=== PATIENT | female | born 1940 | race Caucasian/White ===

== ENCOUNTER 2016-09-28 20:21 | Emergency (ER) | payer MEDICARE, OTHER ==
[~2016-09-28] VITALS: Ht 160 cm; Wt 45.0 kg
[~2016-09-28 20:21] MED LIST: ASPI81TA9 PO; AZIT250T PO; CEFD300C PO; CEFP200T PO; CEPH-264 PO; FOLI1TAB16 PO; HYDR4TAB13 PO; HYOS0.12 PO; MIRT30TA3 PO; SENN8.6T6 PO; SIME125T PO; VANC125C10 PO; ZOLP10TA PO; ambien PEG; dilaudid PEG; folic acid PEG; mylanta PEG; norvasc; probiotic PEG; remeron PEG; vancomycin
[2016-09-28 20:40] VITALS: BP 145/58
--- NOTE | 2016-09-28 21:01 | ED.ADGEN ---
Past History Past Medical History: Cancer, Hypertension, Lung Disease, Pneumonia, Stroke, Other Past Surgical History: Other Smoking: Non-smoker Alcohol Use: None Drug Use: None Adult General Chief Complaint Chief Complaint " My cath. is plugged..." HPI HPI Patient is a 76 year old female who presents with above complaints. Patient has frequent problems with her urinary catheter plugging. She has been seen previously for similar presentation. Patient has multiple medical problems. And has a chronic urinary catheter placement. Patient follows with Dr. Valenzuela. Patient presents for replacement. Urinary catheter. No other pressing complaints. Review of Systems Review of Systems Constitutional: Denies fever or chills [] Eyes: Denies change in visual acuity, redness, or eye pain [] HENT: Denies nasal congestion or sore throat [] Respiratory: Denies cough or shortness of breath [] Cardiovascular: No additional information not addressed in HPI [] GI: Denies abdominal pain, nausea, vomiting, bloody stools or diarrhea . Complaints of bladder distention. : Denies dysuria or hematuria [] complains urinary retention and plugged urinary catheter Musculoskeletal: Chronic back pain or joint pain [] Integument: Denies rash or skin lesions [] Neurologic: Denies headache, focal weakness or sensory changes [] Endocrine: Denies polyuria or polydipsia [] Family History Family History Noncontributory Current Medications Current Medications Current Medications Medications (Trade) Dose Ordered Sig/Jarred Start Time Stop Time Status Last Admin Dose Admin Oxybutynin Chloride (Ditropan) 5 mg STK-MED ONCE 09/28/16 21:41 09/29/16 11:25 DC Phenazopyridine HCl (Pyridium) 200 mg STK-MED ONCE 09/28/16 21:38 09/29/16 11:25 DC Allergies Allergies Allergies Coded Allergies Type Severity Reaction Last Updated Verified Procaine HCl Allergy Severe 08/28/13 Yes ciprofloxacin Allergy Intermediate 08/28/13 Yes ciprofloxacin HCl Allergy Intermediate 08/28/13 Yes I S O L A T I O N *CONTACT* Allergy Unknown 06/08/14 Yes Uncoded Allergies Type Severity Reaction Last Updated Verified oral medications Adverse Reaction Severe Nausea and Vomiting 08/27/13 Physical Exam Physical Exam Constitutional: Chronically ill in appearance, non-toxic appearance. [] HENT: Normocephalic, atraumatic, bilateral external ears normal, oropharynx moist, no oral exudates, nose normal. Muscle wasting Eyes: PERRLA, EOMI, conjunctiva normal, no discharge. [] Neck: Normal range of motion, no tenderness, supple, no stridor. [] Cardiovascular:Heart rate regular rhythm, no murmur, PMI to the left Lungs & Thorax: Bilateral breath sounds equal at apexes on auscultation, a few scattered wheezes. Abdomen: Bowel sounds normal, soft, no tenderness, no masses, no pulsatile masses. Old surgery scars. Mild distention of suprapubic area. Skin: Warm, dry, no erythema, no rash. Poor turgor Back: No tenderness, no CVA tenderness. [] Extremities: No tenderness, no cyanosis, no clubbing, ROM intact, no edema. Muscle wasting. Arthritic changes. Neurologic: Alert and oriented X 3, normal motor function, normal sensory function, no focal deficits noted. [] Psychologic: Affect normal, judgement normal, mood normal. [] Current Patient Data Vital Signs Vital Signs Date Time Temp Pulse Resp B/P Pulse Ox O2 Delivery O2 Flow Rate FiO2 09/28/16 20:40 97.9 20 94 Room Air EKG EKG [] Radiology/Procedures Radiology/Procedures [] Course & Med Decision Making Course & Med Decision Making Pertinent Labs and Imaging studies reviewed. (See chart for details). Justice replaced. Patient follow-up primary care. Patient return if any concerns. [] Final Impression Final Impression 1. Plug Justice catheter [] Problems: Dragon Disclaimer Dragon Disclaimer This electronic medical record was generated, in whole or in part, using a voice recognition dictation system. MAXI BALLESTEROS MD Sep 28, 2016 21:01
[2016-09-28] MEDS ORDERED: PHENAZOPYRIDINE 200 MG TABLET. ONE (21:38)
[2016-09-28] MEDS ORDERED: OXYBUTYNIN CHLORIDE 5 MG TABLET ONE (21:41)
[2016-09-28] MEDS ORDERED: OXYBUTYNIN CHLORIDE 5 MG TABLET PO ONE (22:00)
[2016-09-28] MEDS ORDERED: PHENAZOPYRIDINE 200 MG TABLET. PO ONE (22:00)
== END 2016-09-28 23:45 | disposition home or self-care (01) ==
LOC: ER 20:38
DX: T83.098A Other mechanical complication of other urinary catheter, initial encounter (principal); I10 Essential (primary) hypertension; Z86.73 Personal history of transient ischemic attack (TIA), and cerebral infarction without residual deficits; Z88.4 Allergy status to anesthetic agent; Z88.1 Allergy status to other antibiotic agents; Z91.041 Radiographic dye allergy status
CPT/HCPCS: 51702; 99284-25

== ENCOUNTER 2016-10-12 22:35 | Emergency (ER) | payer MEDICARE, OTHER ==
[~2016-10-12] VITALS: Ht 160 cm; Wt 45.0 kg
--- NOTE | 2016-10-12 23:05 | PHYS DOC ---
General Chief Complaint: URINE CATHETER PROBLEM Stated Complaint: BLOCKED CATH Time Seen by MD: 22:55 Source: patient Problems: History of Present Illness Initial Comments Patient here for Justice catheter problem. Patient's had a catheter in place for quite some time following bladder cancer. She is currently not receiving chemotherapy or radiation. She said she normally flushes every day but skipped last night. They wish try to flush, the catheter wouldn't flush, and she presents for possible obstruction. She really has no other acute symptoms today. There is no fever chills URI symptoms or cough. There's no chest pain or shortness of breath. She has no nausea vomiting or abdominal pain. She has some occasional bladder cramps. She notes no change in color of the urine and urine is not foul-smelling. She has no diarrhea or constipation. There is no focal extremity or neurologic complaints. Patient Jennifer's recently been treated for antibiotics for pneumonia but just finished these. She has no chest pain, shortness of breath, fever, or cough today this acutely changed or different. Other than present for care tonight has been nothing done for this at home and no fractures noted increase or decrease her symptoms. Patient's past medical history is remarkable for bladder cancer. She also does have a feeding tube in place. She says she takes most of her nutrition through the tube. She is a nonsmoker and nonuser of ethanol. She says she gets up and about the house by herself without a cane or a walker. Allergies: Coded Allergies: Procaine HCl (Verified Allergy, Severe, 08/28/13) convulsions ciprofloxacin (Verified Allergy, Intermediate, 08/28/13) ciprofloxacin HCl (Verified Allergy, Intermediate, 08/28/13) I S O L A T I O N *CONTACT* (Verified Allergy, Unknown, 06/08/14) MRSA screen + Uncoded Allergies: oral medications (Adverse Reaction, Severe, Nausea and Vomiting, 08/27/13) Past Medical History Medical History: cancer Social History Smoker: non-smoker Alcohol: none Review of Systems All Other Systems: Reviewed and Negative Physical Exam General Appearance: WD/WN, no apparent distress Neck: full range of motion, supple, normal inspection Respiratory: lungs clear, normal breath sounds, no respiratory distress Cardiovascular: regular rate, rhythm, no edema Gastrointestinal: non tender, soft, no organomegaly, other Back: no CVA tenderness, no vertebral tenderness Extremities: normal inspection, no pedal edema Neurologic/Psychiatric: alert, normal mood/affect, oriented x 3 Skin: normal color Comments Generally this is a thin white female in no acute distress. Vitals are as noted. Pertinent signs on physical exam shows the chest to be clear. Cardiac vascular exam shows regular rate and rhythm without murmur. The abdomen is soft and nontender without masses or megaly. There is no perineal findings noted. Patient does have a feeding tube in the midabdominal area. The site does not appear to look infected, but does look like it somewhat "soupy". Patient says her dressing has not been change in several days' time. The back shows no CVA tenderness. shows a Justice catheter in place. X-ray show no rash cyanosis or edema. Patient is awake alert oriented and cooperative. Remainder of physical exam is clinically unremarkable. Orders, Labs, Meds Old charts note multiple prior ER visits to the ER, the respiratory for Justice catheter and urinary issues. She's been seen here the third time this year for catheter problem, most recently the first part of September. As noted, she's been seen on multiple other occasions for Justice catheter pain and for urinary retention. She was last admitted in the hospital 2013 for pneumonia. 2345 Patient resting comfortably in the ED. Nursing staff was able to flush the catheter but only got about 50 mL of urine out in a very slow fashion. We determined we will go ahead and replace the catheter, which was done successfully, the patient has good flow subsequently through the catheter. We will go ahead and change the patient's feeding tube dressing as well. She has no other complaints and feels like she is comfortable going home at this time. We will ask her to continue her home catheter care as well as to follow-up with primary care or return to the ER sooner as needed if worsen anyway. She looks well, in no acute discomfort distress, okay for discharge home at this time. INES WATKINS MD Oct 12, 2016 23:05
[2016-10-12 23:49] VITALS: BP 133/69
== END 2016-10-12 23:52 | disposition home or self-care (01) ==
LOC: ER 22:35
DX: T83.098A Other mechanical complication of other urinary catheter, initial encounter (principal); Z88.4 Allergy status to anesthetic agent; Z88.1 Allergy status to other antibiotic agents; Z91.041 Radiographic dye allergy status
CPT/HCPCS: 51702; 99284-25

== ENCOUNTER 2017-02-16 02:45 | Inpatient (IN) | payer MEDICARE, OTHER ==
[2017-02-16] VITALS (21 sets, daily range): BP systolic 86–138; BP diastolic 54–95
[~2017-02-16] VITALS: Ht 160 cm; Wt 45.6 kg
[~2017-02-16 02:45] MED LIST changes: +ASPI-612 PO; -ASPI81TA9 PO; -HYDR4TAB13 PO; +HYDR4TAB45 PO; +SENN-87 PO; -SENN8.6T6 PO
[2017-02-16] MEDS ORDERED: 0.9 % SODIUM CHLORIDE 10 ML DISP.SYRIN. IV PRN (03:00)
--- NOTE | 2017-02-16 03:08 | PHYS DOC ---
Past History Past Medical History: Cancer, Hypertension, Lung Disease, Pneumonia, Stroke, Other Past Surgical History: Other Smoking: Non-smoker Alcohol Use: None Drug Use: None Adult General Chief Complaint Chief Complaint: shortness of breath productive cough HPI HPI Patient is a patient from [facility] Patient is a 76-year-old female with history of lung cancer,, generalized abdominal pain, pneumonia, cancer of the mouth, respiratory failure with hypoxia , ileus, malnutrition, anxiety disorder, who presents with progressive shortness of breath productive cough for last 2 weeks. Patient is presently living at [facility] where she is progressively experienced increased shortness of breath with productive cough and with sounding lungs for the last 2 weeks. It's gotten progressively worse she describes increased shortness of breath or pleuritic left-sided chest pain with cough and movement of the chest wall there is unrelenting and continue this. She is normally being treated for depression, chronic pain on daily methadone, hypothyroidism, hypertension who is not receiving any aggressive chemoradiation therapy for her lung cancer and longer. Patient has a G-tube in place for nutritional supplementation since her disease processes cause decreased oral intake and muscle wasting with protein deficiency. The chest wall pain she is expressing continuous worse with direct pressure over the left chest wall and movement. Patient denies any fevers at this point and has had some chills over the coarse week. She denies any abdominal pain, nausea or diarrhea here he denies any UTI symptoms or other changes in her symptoms. Patient asked to go to [facility] but unfortunately this particular admit was not able to follow her request. She is willing to be admitted to our facility and treated by our hospitalist. 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 It is also the reason she cannot swallow and she has a G-tube in place. her cancer has been in remission for some time and she is no longer receiving chemoradiation her for her lung cancer. She is a local Review of Systems Review of Systems Constitutional: Subjective fevers and chills Eyes: No change in visual acuity eye drainage or redness. HENT: Denies nasal congestion or sore throat [] Respiratory: She does have a productive cough and shortness of breath. Cardiovascular: No additional information not addressed in HPI [] GI: Denies abdominal pain, nausea, vomiting, bloody stools or diarrhea [] : Denies dysuria or hematuria [] Musculoskeletal: sHe complains of chronic back and belly pain. [] Integument: Denies rash or skin lesions [] Neurologic: Denies headache, focal weakness or sensory changes [] Endocrine: Denies polyuria or polydipsia [] Allergies Allergies Allergies Coded Allergies Type Severity Reaction Last Updated Verified Procaine HCl Allergy Severe 08/28/13 Yes ciprofloxacin Allergy Intermediate 08/28/13 Yes ciprofloxacin HCl Allergy Intermediate 08/28/13 Yes I S O L A T I O N *CONTACT* Allergy Unknown 06/08/14 Yes Uncoded Allergies Type Severity Reaction Last Updated Verified oral medications Adverse Reaction Severe Nausea and Vomiting 08/27/13 Physical Exam Physical Exam Vital signs recorded on the chart demonstrate no tachypnea no hypoxia no hypertension no fever. Constitutional: Patient is thin cachectic and poorly nourished. She is having increased respiratory rate, with mild retractions, patient is pale appearance with no diaphoresis HENT: Normocephalic, atraumatic, bilateral external ears normal, very dry mucous membranes no oral exudates, nose normal. Patient demonstrates temporal wasting. [] Eyes: PERRLA, EOMI, conjunctiva very pale without discharge Neck: Normal range of motion, no tenderness, supple, no stridor. [] Cardiovascular:Heart rate regular rhythm, no murmur [] Lungs & Thorax: She denies coarse rhonchi throughout the she's of the lungs bilaterally left greater than right. Abdomen: Bowel sounds normal, soft, no tenderness, no masses, no pulsatile masses. G-tube placement demonstrates clean dry and intact. Skin: Warm, dry with pale given Extremities: No tenderness, no cyanosis, no clubbing, ROM intact, no edema. [] Neurologic: Alert and oriented X 3, normal motor function, normal sensory function, no focal deficits noted. [] Psychologic: Affect normal, judgement normal, mood normal. [] Current Patient Data Vital Signs Impression demonstrates hypoxia, tachypnea, hypertension upon arrival. Lab Results Laboratory Tests Test 02/16/17 03:05 White Blood Count 7.7 x10^3/uL (4.0-11.0) Red Blood Count 2.50 x10^6/uL (3.50-5.40) L Hemoglobin 5.4 g/dL (12.0-15.5) *L Hematocrit 17.8 % (36.0-47.0) *L Mean Corpuscular Volume 71 fL (79-100) L Mean Corpuscular Hemoglobin 22 pg (25-35) L Mean Corpuscular Hemoglobin Concent 31 g/dL (31-37) Red Cell Distribution Width 20.6 % (11.5-14.5) H Platelet Count 453 x10^3/uL (140-400) H Neutrophils (%) (Auto) 85 % (31-73) H Lymphocytes (%) (Auto) 4 % (24-48) L Monocytes (%) (Auto) 11 % (0-9) H Eosinophils (%) (Auto) 0 % (0-3) Basophils (%) (Auto) 0 % (0-3) Neutrophils # (Auto) 6.5 x10^3uL (1.8-7.7) Lymphocytes # (Auto) 0.3 x10^3/uL (1.0-4.8) L Monocytes # (Auto) 0.8 x10^3/uL (0.0-1.1) Eosinophils # (Auto) 0.0 x10^3/uL (0.0-0.7) Basophils # (Auto) 0.0 x10^3/uL (0.0-0.2) Sodium Level 133 mmol/L (136-145) L Potassium Level 4.6 mmol/L (3.5-5.1) Chloride Level 95 mmol/L (98-107) L Carbon Dioxide Level 35 mmol/L (21-32) H Anion Gap 3 (6-14) L Blood Urea Nitrogen 22 mg/dL (7-20) H Creatinine 0.7 mg/dL (0.6-1.0) Estimated GFR (Cockcroft-Gault) 81.1 BUN/Creatinine Ratio 31 (6-20) H Glucose Level 112 mg/dL (70-99) H Lactic Acid Level 0.7 mmol/L (0.4-2.0) Calcium Level 9.0 mg/dL (8.5-10.1) Magnesium Level 2.1 mg/dL (1.8-2.4) Total Bilirubin 0.3 mg/dL (0.2-1.0) Aspartate Amino Transferase (AST) 21 U/L (15-37) Alanine Aminotransferase (ALT) 23 U/L (14-59) Alkaline Phosphatase 139 U/L (46-116) H Creatine Kinase 23 U/L (26-192) L Creatine Kinase MB (Mass) < 0.5 ng/mL (0.0-3.6) Creatine Kinase MB Relative Index 2.2 % (0-4) Troponin I Quantitative < 0.017 ng/mL (0-0.055) KV-Pmp-A-Type Natriuretic Peptide 2675 pg/mL (0-449) H Total Protein 7.9 g/dL (6.4-8.2) Albumin 2.1 g/dL (3.4-5.0) L Albumin/Globulin Ratio 0.4 (1.0-1.7) L Lipase 37 U/L (73-393) L Laboratory Tests Test 02/16/17 03:05 Sodium Level 133 mmol/L (136-145) L Potassium Level 4.6 mmol/L (3.5-5.1) Chloride Level 95 mmol/L (98-107) L Carbon Dioxide Level 35 mmol/L (21-32) H Anion Gap 3 (6-14) L Blood Urea Nitrogen 22 mg/dL (7-20) H Creatinine 0.7 mg/dL (0.6-1.0) Estimated GFR (Cockcroft-Gault) 81.1 BUN/Creatinine Ratio 31 (6-20) H Glucose Level 112 mg/dL (70-99) H Lactic Acid Level 0.7 mmol/L (0.4-2.0) Calcium Level 9.0 mg/dL (8.5-10.1) Magnesium Level 2.1 mg/dL (1.8-2.4) Total Bilirubin 0.3 mg/dL (0.2-1.0) Aspartate Amino Transferase (AST) 21 U/L (15-37) Alanine Aminotransferase (ALT) 23 U/L (14-59) Alkaline Phosphatase 139 U/L (46-116) H Creatine Kinase 23 U/L (26-192) L Creatine Kinase MB (Mass) < 0.5 ng/mL (0.0-3.6) Creatine Kinase MB Relative Index 2.2 % (0-4) Troponin I Quantitative < 0.017 ng/mL (0-0.055) YF-Gfl-F-Type Natriuretic Peptide 2675 pg/mL (0-449) H Total Protein 7.9 g/dL (6.4-8.2) Albumin 2.1 g/dL (3.4-5.0) L Albumin/Globulin Ratio 0.4 (1.0-1.7) L Lipase 37 U/L (73-393) L EKG EKG [] CT completed at 4 3 AM 02/16/2017 demonstrates sinus rhythm with a heart rate of 85 W[place] interval of 142 which is normal QRS width of 80 which is normal QTC which is 450 which is normal. Patient is a little bit of left axis deviation and left anterior hemiblock. She has good R-wave progression with no ST segment or T-wave inversions or ST segment elevations consistent with acute ischemia EKG is read by Dr. Piña Radiology/Procedures Radiology/Procedures [] AP chest film done at 3:12 AM 02/16/2017 demonstrates focal consolidation within the right lower lung right middle lung with fluid in the fissure. There may also be a mass lesion noted within mediastinum on the right left side with increased perihilar markings. She does not demonstrate any cardiomegaly subdiaphragmatic air or pneumothorax. Chest x-ray read by Dr. Piña. Course & Med Decision Making Course & Med Decision Making Pertinent Labs and Imaging studies reviewed. (See chart for details) patient arrived with a increased respiratory drive, anxiety, hypoxia on a nonrebreather very cold and chilled and worried about a pneumonia. I reviewed residential notes, vital signs, EMS report, my physical and my history collected shortness of breath lDifferential diagnosis: Acute myocardial ischemia, heart failure, cardiac tamponade, bronchospasm, pulmonary embolism, pneumothorax, pulmonary infection i.e. bronchitis or pneumonia, upper airway obstruction, anaphylaxis, aspiration, psychogenic, pulmonary contusion, toxidrome, pneumomediastinum, noncardiogenic pulmonary edema or ARDS, COPD, tuberculosis, cystic fibrosis, asthma, high altitude pulmonary edema, valvular dysfunction, cardiac dysrhythmia , stroke, neuromuscular diseases like myasthenia gravis gravis, ALS, Guillain- Galan syndrome, metabolic acidosis to include diabetic ketoacidosis, sepsis, and obstructive disorders like massive obesity considered upon arrival. sHe was immediately given a medication for anxiety, pain medications, blood cultures, lactic acid, troponin, CBC, CMP, EKG, chest x-ray and patient was placed on monitors with IV Hep-Lock. 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 Patient's pain improved significantly with IV medications and she became more rested. Patient tells me that their symptoms given during CC are improved. The time is now 3:30 AM CConsultant note: Dr. Kaur Program Development Manager called at of the service service at 3:31 AM Consult called back at 3:31 AM Discussed the case I presented and they agreed with admission. Time of acceptance 33 1 AM. He was provided IV antibiotics, fluids, antiemetics, pain medications, and antianxiety medications. She will be placed in the ICU for close monitoring while antibiotics are administered. Impression: Pneumonia, lung cancer, chest pain unclear etiology likely pleurisy I spent approximately 45-50 minutes working and engaged directly in the patient care providing critical care evaluation this includes but not limited to time spent engaged in work directly related to the individual patients care. I spent time at the bedside, reviewing test results, discussing the case with staff, documenting the medical record and time spent with EMS discussing specific treatment issues when the patient presented and during his evaluation. Impression CBC is still not returned patient demonstrates multiple abnormality is on her CMP is well to include hyponatremia, elevated BUNs, Patient's CBCs finally returned at 4:46 AM demonstrates severe anemia likely from chronic disease with a H&H of 5 and 17. This is explained patient's discomfort shortness of breath and fatigue she will be typed and crossed for 2 units and transfused in the unit. I Shared This Information with the Patient for Admission. Dragon Disclaimer Dragon Disclaimer This chart was dictated in whole or in part using Voice Recognition software in a busy, high-work load, and often noisy Emergency Department environment. It may contain unintended and wholly unrecognized errors or omissions. Departure Departure: Impression: Primary Impression: Pneumonia Additional Impressions: Chest pain Dyspnea Anemia Disposition: ADMITTED INPATIENT Admitting Physician: Remedios Kaur Referrals: KAILEY GONCALVES (PCP) Problem Qualifiers OCTAVIO PIÑA MD Feb 16, 2017 03:08
[2017-02-16] MEDS ORDERED: AZITHROMYCIN 500 MG VIAL. IV ONE (03:21)
[2017-02-16] MEDS ORDERED: IV NORMAL SALINE 250ML 250 ML ONE ×2 (03:21→14:13)
[2017-02-16] MEDS ORDERED: IV NORMAL SALINE 50ML 50 ML ONE (03:22)
[2017-02-16] MEDS ORDERED: cefTRIAXone SODIUM 1 GM VIAL IV ONE (03:22)
[2017-02-16] MEDS ORDERED: HYDROmorphone PF 1 MG/ML DISP.SYRIN IV ONE (03:30)
[2017-02-16] MEDS ORDERED: IV NORMAL SALINE 1,000ML 1,000 ML IV SCH (03:30)
[2017-02-16] MEDS ORDERED: ASPIRIN 81 MG TAB.CHEW PO ONE (03:30)
[2017-02-16] MEDS ORDERED: AZITHROMYCIN 500 MG in IV NORMAL SALINE 250ML 250 ML IV ONE (03:30)
[2017-02-16] MEDS: IV NORMAL SALINE 1,000ML 1,000 ML IV SCH ×3 (03:46→23:46)
[2017-02-16] MEDS ORDERED: HYDROmorphone PF 1 MG/ML DISP.SYRIN IV PRN (04:00)
[2017-02-16] MEDS ORDERED: ONDANSETRON PF 4 MG/2 ML VIAL. IV PRN (04:00)
[2017-02-16] MEDS ORDERED: ACETAMINOPHEN 325 MG TABLET PO PRN (04:00)
[2017-02-16 04:18] LABS: ALBUMIN 2.1 g/dL (3.4-5.0); ALBUMIN/GLOBULIN RATIO 0.4 (1.0-1.7); ALK PHOS 139 U/L (46-116); ALT (SGPT) 23 U/L (14-59); ANION GAP 3 (6-14); AST (SGOT) 21 U/L (15-37); BLOOD UREA NITROGEN 22 mg/dL (7-20); BUN/CREATININE RATIO 31 (6-20); CARBON DIOXIDE 35 mmol/L (21-32); CHLORIDE 95 mmol/L (98-107); CREATINE KINASE 23 U/L (26-192); CREATININE 0.7 mg/dL (0.6-1.0); GFR 81.1; GLUCOSE 112 mg/dL (70-99); LIPASE 37 U/L (73-393); MAGNESIUM 2.1 mg/dL (1.8-2.4); POTASSIUM 4.6 mmol/L (3.5-5.1); SODIUM 133 mmol/L (136-145); TOTAL BILIRUBIN 0.3 mg/dL (0.2-1.0); TOTAL PROTEIN 7.9 g/dL (6.4-8.2)
[2017-02-16 04:20] LABS: BASO % 0 % (0-3); EOS % 0 % (0-3); LYMPH # 0.3 x10^3/uL (1.0-4.8); LYMPH % 4 % (24-48); MEAN CORPUSCULAR HEMOGLOBIN 22 pg (25-35); MEAN CORPUSCULAR HGB CONC 31 g/dL (31-37); MEAN CORPUSCULAR VOLUME 71 fL (79-100); MONO # 0.8 x10^3/uL (0.0-1.1); MONO % 11 % (0-9); NEUT # 6.5 x10^3uL (1.8-7.7); NEUT % 85 % (31-73); PLATELET COUNT 453 x10^3/uL (140-400); RED CELL DISTRIBUTION WIDTH 20.6 % (11.5-14.5); WHITE BLOOD COUNT 7.7 x10^3/uL (4.0-11.0)
[2017-02-16 04:38] LABS: HEMOGLOBIN 5.4 g/dL (12.0-15.5)
[2017-02-16 04:39] LABS: HEMATOCRIT 17.8 % (36.0-47.0)
[2017-02-16 05:29] LABS: BACTERIA,URINE MANY /HPF (0-FEW); BILIRUBIN,URINE NEG (NEG); CLARITY,URINE HAZY; COLOR,URINE YELLOW; GLUCOSE,URINE NEG (NEG); NITRITE,URINE NEG (NEG); SQUAMOUS EPITHELIAL CELL,UR FEW /LPF; UROBILINOGEN,URINE 0.2 mg/dL (0.2 mg/dL); WBC,URINE TNTC /HPF (0-4)
--- NOTE | 2017-02-16 06:44 | EKG ---
[address] [address] Test Date: 2017-02-16 Test Time: 04:03:04 Pat Name: MARCY HALL Department: Room: [facility]02 1 Gender: F Learning Coach: [place] : [id number] Requested By: OCTAVIO PIÑA Order Number: [id number] Reading MD: Raleigh Glasgow Measurements Intervals [place] Rate: 85 P: -8 NE: 142 QRS: -36 QRSD: 80 T: 65 QT: 378 QTc: 450 Interpretive Statements SINUS RHYTHM ABNORMAL LEFT AXIS DEVIATION LEFT ANTERIOR FASCICULAR BLOCK Electronically Signed On 02-22-2017 14:14:25 CDT by Raleigh Glasgow
--- NOTE | 2017-02-16 08:00 | NUR ---
The patient, MARCY HALL, 76 y/o, F admitted by STEPHY RYDER DO, was given written information regarding hospital policies, unit procedures and contact persons. Valuables were checked and left in room. Pt able to verbalize POC, states she is feeling better this AM but is tired. Will recheck labs this AM. Awaiting blood from [facility] due to antibodies in blood. Once arrival to hospital will transfuse 2 units. Pt stable at this time.
[2017-02-16] MEDS: IPRATRPIUM/ALBUTEROL 0.5/2.5MG 3 ML NEBU. NEB SCH ×5 (08:15→21:14)
[2017-02-16] MEDS ORDERED: PROMETHAZINE 25 MG TABLET. PO SCH (08:30)
[2017-02-16] MEDS ORDERED: BISACODYL 10 MG SUPP.RECT RC PRN (08:30)
[2017-02-16] MEDS ORDERED: LORazepam 0.5 MG TABLET PO PRN (08:30)
[2017-02-16] MEDS ORDERED: LORA0.5T96 PO (08:43)
[2017-02-16] MEDS ORDERED: BISA10SU2 RC (08:43)
[2017-02-16] MEDS ORDERED: HYOS0.1222 PO (08:43)
[2017-02-16] MEDS ORDERED: LACT1CAP6 PO (08:43)
[2017-02-16] MEDS ORDERED: LEVO50TA5 PO (08:43)
[2017-02-16] MEDS ORDERED: LIDO40SO MM (08:43)
[2017-02-16] MEDS ORDERED: LORA10TA3 PO (08:47)
[2017-02-16] MEDS ORDERED: METH10TA2 PO (08:47)
[2017-02-16] MEDS ORDERED: PROM25TA10 PO (08:51)
[2017-02-16] MEDS ORDERED: NORT25CA PO (08:51)
[2017-02-16] MEDS ORDERED: METO10TA81 PO (08:51)
[2017-02-16] MEDS ORDERED: OXYB5TAB7 PO (08:51)
[2017-02-16] MEDS ORDERED: FOLIC ACID 1 MG TABLET PO SCH (09:00)
[2017-02-16] MEDS ORDERED: LEVOTHYROXINE 50 MCG TABLET PO SCH (09:00)
[2017-02-16] MEDS ORDERED: LACTOBACILLUS ACIDOPH & BULGAR 1 TABLET. PO SCH (09:00)
[2017-02-16] MEDS: SENNOSIDES 8.6 MG TABLET PO SCH ×2 (09:00→22:25)
[2017-02-16] MEDS: ASPIRIN ENTERIC COATED 81 MG TABLET.DR. PO SCH (09:00)
[2017-02-16] MEDS ORDERED: LIDOCAINE 2% VISCOUS 15 ML SOLUTION. MM SCH ×2 (09:15→12:00)
[2017-02-16] MEDS ORDERED: SIMETHICONE 80 MG TAB.CHEW PO SCH (09:15)
[2017-02-16] MEDS ORDERED: HYDROmorphone 2 MG TABLET PO PRN (09:15)
[2017-02-16] MEDS ORDERED: METOCLOPRAMIDE 5 MG TABLET PO SCH (09:15)
[2017-02-16] MEDS ORDERED: METHADONE 5 MG TABLET. PO SCH (09:15)
[2017-02-16 09:17] LABS: RED BLOOD COUNT 2.42 x10^6/uL (3.50-5.40); RED CELL DISTRIBUTION WIDTH 20.2 % (11.5-14.5); WHITE BLOOD COUNT 7.3 x10^3/uL (4.0-11.0)
[2017-02-16 09:29] LABS: HEMATOCRIT 17.2 % (36.0-47.0); HEMOGLOBIN 5.2 g/dL (12.0-15.5)
[2017-02-16] MEDS ORDERED: methylPREDNISolone SOD SUCC PF 125 MG/2 ML VIAL. IV ONE (09:30)
[2017-02-16 09:32] LABS: ALBUMIN/GLOBULIN RATIO 0.4 (1.0-1.7); CALCIUM 8.9 mg/dL (8.5-10.1); CREATININE 0.8 mg/dL (0.6-1.0); GFR 69.6; POTASSIUM 4.6 mmol/L (3.5-5.1); TOTAL BILIRUBIN 0.2 mg/dL (0.2-1.0); TOTAL PROTEIN 7.6 g/dL (6.4-8.2)
[2017-02-16] MEDS: guaiFENesin DM 600/30MG 1 TAB TAB.ER.12H PO SCH ×3 (10:45→22:24)
--- NOTE | 2017-02-16 11:00 | NUR ---
Notified that blood is ready to be obtained, patient back from CT. Notified by CT that IV was infiltrated.
--- NOTE | 2017-02-16 11:08 | RAD ---
Chest x-ray Indication: 76-year-old female with chest pain, shortness of breath, congestion. History of right lung cancer Technique: Portable AP chest x-ray Comparison: Previous chest x-ray from 06/07/2014 Findings: Decreased right lung volume noted with elevation of right hemidiaphragm. There is an opacity within the right blessing with linear consolidation in the lower lung zone. Diffuse bilateral peribronchial wall thickening noted with increased interstitial opacities within right lung. There is circumferential pleural thickening/pleural effusion on the right. No pneumothorax. Heart is normal in size. Impression: 1. Decreased right lung volume may be secondary to postsurgical changes. Clinically correlate. 2. Soft tissue opacity in the right hilum may represent malignancy or lymphadenopathy. CT chest with IV contrast is recommended for further evaluation. 3. Mild right circumferential pleural thickening/loculated pleural effusion. MTDD
[2017-02-16] MEDS ORDERED: PANTOPRAZOLE IV PUSH 40 MG VIAL. IVP SCH (11:30)
--- NOTE | 2017-02-16 11:44 | HP ---
ADMIT DATE: 02/16/2017 REASON FOR ADMISSION: Shortness of breath, cough. HISTORY OF PRESENT ILLNESS: This is a 76-year-old female with a history cancer of the tongue, also bladder cancer who reports progressive difficulty breathing with decreased energy and positive sputum with lots of mucus production that she states has been ongoing since before . The patient states she is severely anemic around Mother's Day and got a transfusion. PAST MEDICAL HISTORY: 1. Cancer of the tongue, for which she had tongue surgery, radiation and chemo. 2. Bladder cancer. 3. Questionable lung cancer, also tobacco use disorder, quit 3 years ago. She also has had pneumonia in the past. 4. History of acute respiratory failure, severe protein-calorie malnutrition and anxiety. 5. Severe salivary gland deficiency and with difficulty swallowing, but she states she can take pills with applesauce if they are crushed. 6. She has had chemo and radiation. PAST SURGICAL HISTORY: Tongue surgery for the cancer of the tongue. The patient also has a PEG tube. HABITS: She currently resides at a rehab facility. She used to smoke and quit 3 years ago. No alcohol. FAMILY HISTORY: Positive for cancer. ALLERGIES: MULTIPLE ALLERGIES INCLUDING PROCAINE, CEPHALEXIN, CIPRO, CIPROFLOXIN, MORPHINE, ORAL SULFA, TRAMADOL, TRIMETHOPRIM. MEDICATIONS: Reviewed. The patient is on methadone as well as Dilaudid. She also is on multiple medications for constipation. REVIEW OF SYSTEMS: The patient states she has diarrhea, which is sometimes continuous at least 4-5 times per day. Just difficulty speaking due to the tongue weakness, fatigue. Positive for sputum production, positive weight loss of 20 pounds. The patient denies urinary symptoms. OBJECTIVE: VITAL SIGNS: Height 63 inches, weight 101.5 pounds, blood pressure 102/58, pulse 78, respirations 16, pulse ox is 98% on 4 liters. She had been initially 89% on 10 liters. GENERAL: A very frail elderly female who is resting comfortably at the moment. Color is extremely pale. HEENT: Her eyes are clear. Her nose is patent. Throat was clear. There was evidence of tongue surgery with limited movement of her tongue. Her speech is somewhat garbled and difficult to understand. NECK: Supple. There was no supraclavicular lymph nodes. LUNGS: With coarse breath sounds. CARDIOVASCULAR: Regular rhythm and rate with a 2/6 systolic murmur. ABDOMEN: Soft, nontender. PEG tube is in place. Bowel sounds are positive. Slightly distended. EXTREMITIES: Without edema. LABORATORY DATA: Hemoglobin is 5.4, hematocrit is 17.8, MCV is 71. Sodium is 134, CO2 33, BUN is 23, creatinine 0.8. Her albumin is 2.0. Troponins are negative. Urine large leukocyte esterase, too numerous to count white cells. IMAGING: Chest x-ray has not been overread, but there is complete whiteout of the right side of her lung with a large mass effect. There is a right middle lobe, I believe, infiltrate. ASSESSMENT: 1. Acute respiratory failure. 2. Multilobar pneumonia. 3. Questionable lung cancer. 4. History of cancer of the tongue. 5. Weight loss. 6. Severe anemia, must suspect recurrence of her malignancy. 7. Severe protein calorie malnutrition. 8. Dysphagia. 9. PEG tube. PLAN: Blood transfusions, antibiotics, stool Hemoccults and check the stool for C. diff if her diarrhea is severe and she is doing better with breathing treatments as her oxygenation has improved. STEPHY RYDER DO DR: MERY/leon JOB#: [id number] / [id number]
[2017-02-16] MEDS ORDERED: IOHEXOL 300 MG/ML 75 ML VIAL. IV ONE (11:45)
[2017-02-16] MEDS: HYOSCYAMINE 0.125 MG TAB.RAPDIS PO SCH ×3 (12:00→22:24)
[2017-02-16] MEDS: PANTOPRAZOLE IV PUSH 40 MG VIAL. IVP SCH (12:07)
--- NOTE | 2017-02-16 13:57 | RAD ---
CT chest without IV contrast Indication: 76-year-old female with abnormal chest x-ray. Bladder and tongue cancer. Difficulty breathing. Technique: CT chest with IV contrast with multiplanar reformats. Comparison: Plain film from the same day Findings: Neck bases clear. Heart is normal in size. Coronary artery calcifications. No pericardial effusion. Loculated circumferential small right pleural effusion. Atherosclerotic disease of the aortic arch and origins of the great vessels noted. No axillary or left hilar adenopathy. Calcified right hilar lymph node. 2.6 x 1.5 cm aortopulmonary window lymph node. Loss of right lung volume noted with large area of consolidation with sparing of anterior and apical segments of the right upper lobe. There is abnormal material within the right mainstem bronchus with distal consolidation of the lung parenchyma. Pulmonary vessels are seen coursing through this consolidation. Surgical sutures are seen in the right infrahilar region. Reticulonodular opacities are seen within the aerated right lung. Spiculated opacity seen within the right lung apex likely atelectasis or scarring. Similar area of opacity seen adjacent the left major fissure likely atelectasis. Trace left pleural effusion with passive atelectasis of the adjacent lung parenchyma. The visualized liver and left kidney are within normal limits. No adrenal nodularity. Punctate calcification seen within spleen likely healed granulomatous disease. Scattered atherosclerotic disease of abdominal aorta. There is calcified plaque seen at the celiac axis ostia and SMA ostia. No suspicious osseous lesions. Impression: 1. Post obstructive atelectasis of the right lower lobe likely secondary to narrowing of the right mainstem bronchus with mucus impaction. Underlying postobstructive pneumonia not ruled out. Although no discrete hilar mass seen, the consolidation of the lung limits detection of small mass. 2. Likely postsurgical changes in the right infrahilar region. Correlate with surgical history. 3. Small loculated circumferential right pleural effusion. 4. Diffuse bilateral interstitial opacities, nonspecific. May represent pulmonary edema or infection. 5. Enlarged aortopulmonary lymph node may be reactive or metastatic. PQRS Compliance Statement: One or more of the following individualized dose reduction techniques were utilized for this examination: 1. Automated exposure control 2. Adjustment of the mA and/or kV according to patient size 3. Use of iterative reconstruction technique
[2017-02-16] MEDS: METHADONE 5 MG TABLET. PO SCH ×2 (14:00→22:25)
[2017-02-16] MEDS: METOCLOPRAMIDE 5 MG TABLET PO SCH ×2 (14:00→22:25)
--- NOTE | 2017-02-16 14:41 | NUR ---
Supervison, physician notified and attempted multiple times, IV started in right upper arm with ultrasound machine. Pt started on Blood transfusion at this time at 75/hr. Tubing primed with NS and then primed with blood. Transfusion remained at 75/h, patient monitored closely x 15min. No reaction noted, transfusion remained at 75/hr due to IV status.
--- NOTE | 2017-02-16 15:04 | NUR ---
IP: patient has hx of MRSA + nasal screen. Requires contact precaution until 2 negative results 7 days apart.
--- NOTE | 2017-02-16 20:40 | NUR ---
Blood transfusion started at 2021, tubing primed with NS adn the primed with blood. Transfusion started at 75cc/hr, patient monitored closely X15 min.No reaction noted, transfusion increased to 125 cc/hr. Call light in reach, will monitor.
[2017-02-16] MEDS ORDERED: MIRTAZAPINE 30 MG TABLET PO SCH (21:00)
[2017-02-16] MEDS: NORTRIPTYLINE 25 MG CAPSULE PO SCH (22:24)
[2017-02-16] MEDS: SIMETHICONE 80 MG TAB.CHEW PO SCH (22:24)
[2017-02-16] MEDS: OXYBUTYNIN CHLORIDE 5 MG TABLET PO SCH (22:25)
[2017-02-17] VITALS (22 sets, daily range): BP systolic 119–159; BP diastolic 72–94
--- NOTE | 2017-02-17 00:15 | NUR ---
Blood transfusion completed at 23:15, pt tolerated well without difficulty. Current 1 hour post transfusion vitals are as follows: Bp 125/73, HR-86, RR-12, O2 sats 98%. temp- 97.2. Will continue to monitor amd recheck H&H in 1 hour.
[2017-02-17 03:02] LABS: HEMATOCRIT 29.5 % (36.0-47.0); HEMOGLOBIN 9.4 g/dL (12.0-15.5)
[2017-02-17] MEDS: IPRATRPIUM/ALBUTEROL 0.5/2.5MG 3 ML NEBU. NEB SCH ×4 (05:16→21:02)
[2017-02-17] MEDS: METHADONE 5 MG TABLET. PO SCH ×3 (06:07→20:28)
[2017-02-17] MEDS: LEVOTHYROXINE 50 MCG TABLET PO SCH (06:07)
[2017-02-17] MEDS: HYOSCYAMINE 0.125 MG TAB.RAPDIS PO SCH ×6 (06:08→20:29)
[2017-02-17] MEDS: AZITHROMYCIN 500 MG in IV NORMAL SALINE 250ML 250 ML IV SCH (06:08)
[2017-02-17 06:14] LABS: HEMATOCRIT 26.3 % (36.0-47.0); HEMOGLOBIN 8.7 g/dL (12.0-15.5); RED BLOOD COUNT 3.44 x10^6/uL (3.50-5.40); RED CELL DISTRIBUTION WIDTH 21.9 % (11.5-14.5); WHITE BLOOD COUNT 5.3 x10^3/uL (4.0-11.0)
[2017-02-17 06:29] LABS: ALBUMIN 2.1 g/dL (3.4-5.0); ALBUMIN/GLOBULIN RATIO 0.4 (1.0-1.7); CALCIUM 8.9 mg/dL (8.5-10.1); CREATININE 0.7 mg/dL (0.6-1.0); GFR 81.1; POTASSIUM 4.4 mmol/L (3.5-5.1); TOTAL BILIRUBIN 0.4 mg/dL (0.2-1.0); TOTAL PROTEIN 7.9 g/dL (6.4-8.2)
--- NOTE | 2017-02-17 06:44 | ACF ---
Admission Criteria Forms PNEUMONIA, COMMUNITY ACQUIRED Clinical Indications for Admission to Inpatient Care (Place 'X' for any and all applicable criteria): Admission to inpatient status for two midnights or more is indicated for ANY ONE of the following (1)(2)(3): [ ]I. Hypoxia [ ]II. Hemodynamic instability [ ]III. Altered mental status that is severe or persistent [ ]IV. Dehydration that is severe or persistent. [ ]V. Bacteremia [ ]. Moderate-risk or high-risk category patients (Pneumonia Severity Index ( PSI) class IV or V, or CURB-65 score of 3 or greater). [X]VII. Intermediate-risk category patients (e.g., PSI class III or CURB-65 score 2) who do not improve with outpatient and observation care treatment [ ]VIII. Outpatient treatment failure as indicated by 1 or more of the following(9): [ ]a) Failure to respond to antibiotic (eg, resistant organism) [ ]b) Clinically significant adverse effects from medication (eg, vomiting) [ ]c) Complications of pneumonia (eg, empyema, bacteremia) [ ]d) Significant worsening of comorbid cond necessitating inpatient care (eg, chronic heart failure) [ ]IX. Appropriate diagnostic testing and treatment unavailable in outpatient or recovery facility (eg, testing or infection control measures unavailable) [ ]X. Respiratory finding (eg. tachypnea) that do not respond to outpatient observation care treatment [ ]XI. Complicated pleural effusions (eg, emphysema, exudative, loculated) [ ]XII. Immunocompromised patients (e.g., AIDS, chronic steroid use) at moderate or high risk based on clinical evaluation. Extended stay beyond goal length of stay may be needed for (20) [ ]a) Unclear diagnosis [ ]b) Pleural disease [ ]c) Severe pneumonia or treatment failure [ ]d) Respiratory failure [ ]e) New onset hyponatremia (serum Na concentration less than 135 mEq/L(mmol/ L) [ ]f) Clinically significant comorbid illness (eg, heart failure, atrial fibrillation with rapid heart rate, alcohol withdrawal, renal insufficiency)(34)(35) [ ]g) Comorbid acute exacerbation of COPD(36) [ ]h) Concomitant diagnosis of malignancy [ ]i) Concomitant altered mental status [ ]j) Culture-identified Gram-negative or antibiotic-resistant organism (eg, Pseudomonas, methicillin-resistant Staphylococcus aureus MRSA)(30) [ ]k) Healthcare-associated pneumonia (36) The original [facility] [employer] content created by [facility] has been revised. The portions of the content which have been revised are identified through the use of italic text, and [facility] has neither reviewed nor approved the modified material. All other unmodified content is copyright [facility]. Please see references footnoted in the original [facility] edition 2015 Admission Criteria Met?: Yes BRITTNI BELCHER Feb 17, 2017 06:44
--- NOTE | 2017-02-17 08:00 | NUR ---
Dressing changed to g-tube this AM. Area rednedded, skin prep and courtney applied to area and covered with 4x4 gauze.
[2017-02-17] MEDS: ASPIRIN ENTERIC COATED 81 MG TABLET.DR. PO SCH (08:32)
--- NOTE | 2017-02-17 09:00 | NUR ---
CXR obtained, notified physician of worsening pneumonia. Spoke with physician in regards to cxr and discussed options, states she will need to be transported for obstructive PNE, large mucus plug needing bronchoscope, and anemia. 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
--- NOTE | 2017-02-17 09:10 | RAD ---
KUB Indication: Abdominal distention Technique: AP view of the abdomen and pelvis Comparison: Previous CT abdomen/pelvis from 02/21/2016 Findings: G-tube is seen projecting over the left lower quadrant. No abnormally dilated bowel loops. Contrast material is seen within the bladder likely from prior CT chest study. Lower lumbar spine degenerative disease. Vascular calcifications seen in the bilateral inguinal region. Impression: No abnormally dilated bowel loops to suggest high-grade obstruction.
--- NOTE | 2017-02-17 09:13 | RAD ---
Chest x-ray Indication: Shortness of breath. Follow-up pneumonia. Technique: Portable AP chest plane from Comparison: Plain film from 02/16/2017 Findings: Loss of right lung volume with increased consolidation in the middle and lower lung zones when compared to prior study. Stable small loculated right pleural effusion. The rest of the aerated lungs demonstrate prominent interstitial markings, stable. No pneumothorax. Impression: 1. Increase in the lung consolidation involving the right mid and lower lung zones when compared to prior chest x-ray from 02/16/2017. This suggest post obstructive atelectasis or pneumonia. 2. Small loculated right pleural effusion.
[2017-02-17] MEDS: SENNOSIDES 8.6 MG TABLET PO SCH ×2 (09:31→20:29)
[2017-02-17] MEDS: guaiFENesin DM 600/30MG 1 TAB TAB.ER.12H PO SCH ×2 (09:32→20:28)
[2017-02-17] MEDS: SIMETHICONE 80 MG TAB.CHEW PO SCH ×2 (09:32→20:28)
[2017-02-17] MEDS: LACTOBACILLUS ACIDOPH & BULGAR 1 TABLET. PO SCH (09:32)
[2017-02-17] MEDS: METOCLOPRAMIDE 5 MG TABLET PO SCH ×3 (09:32→20:29)
[2017-02-17] MEDS: FOLIC ACID 1 MG TABLET PO SCH (09:32)
[2017-02-17] MEDS: PANTOPRAZOLE IV PUSH 40 MG VIAL. IVP SCH (09:32)
--- NOTE | 2017-02-17 10:40 | NUR ---
Awaiting [facility] transport team to call back at this time, Dr. Kaur here and talking with family at this time. Pt resting comfortably at this time with at bedside.
[2017-02-17] MEDS ORDERED: VANCOMYCIN 1.25 GM in IV NORMAL SALINE 250ML 250 ML IV ONE (11:40)
[2017-02-17] MEDS: VANCOMYCIN PER PHARMACY MC PRN (11:49)
--- NOTE | 2017-02-17 11:50 | NUR ---
Pharmacy Vancomycin Dosing Note S:Consulted to monitor and dose vancomycin started 02/17/17. O:MARCY HALL is a 76 year old F with Pneumonia . Height: 5 feet, 3 inches Weight: 46.062501 kg [place] Body Weight: 52.40 Adjusted Body Weight: 50.16 Dosing Weight: Actual Other Antibiotics: ROCEPHEN, AZITHROMYCIN LABS: Last BUN: 21 Last Creatinine: 0.7 Creatinine Clearance: 34.8 Last WBC: 5.3 Last Platelets: 429 Target Trough: 15-20 A: Initial dosing is based on height, actual weight, renal function, and indication. P: 1. Give Vancomycin 1250mg IV initially, then Vancomycin 750 mg IV q24h 2. Follow up level 02/19/17 at 1130. 3. Pharmacy will continue to monitor, follow and adjust therapy as needed. MARY BILLS RPH 02/17/17 1150
--- NOTE | 2017-02-17 12:35 | NUR ---
Spoke with Dr. Kaur, recieved call from Dr. Blanco at [facility]. States mucous plug is not new and has had bronchoscope in the past. States to tx with ABT and continue plan of care. States in December they saw oncologist and their was no further recommendations. Baseline HBG is 8.0. Will notify and patient.
[2017-02-17] MEDS ORDERED: HYDROmorphone 2 MG TABLET PO PRN (15:00)
[2017-02-17] MEDS: NORTRIPTYLINE 25 MG CAPSULE PO SCH (20:29)
[2017-02-17] MEDS: OXYBUTYNIN CHLORIDE 5 MG TABLET PO SCH (20:29)
--- NOTE | 2017-02-17 22:11 | NUR ---
Nursing: Pt normally takes pills whole suspended in applesauce. Pt tolerated the first several HS pills well, but had difficulty swallowing the last two. Pills were crushed and given through PEG tube then flushed with 75cc water. Continuous tube feeding resumed.
[2017-02-18] VITALS (24 sets, daily range): BP systolic 119–164; BP diastolic 74–95
[2017-02-18] MEDS ORDERED: IV NORMAL SALINE 250ML 250 ML ONE (01:00)
[2017-02-18] MEDS: AZITHROMYCIN 500 MG in IV NORMAL SALINE 250ML 250 ML IV SCH (02:04)
[2017-02-18] MEDS: HYOSCYAMINE 0.125 MG TAB.RAPDIS PO SCH ×7 (03:29→23:26)
--- NOTE | 2017-02-18 04:38 | PN ---
DATE: 02/17/2017 CURRENT PROBLEMS: 1. Postobstructive pneumonia. 2. Acute respiratory failure. 3. Lung cancer. 4. Right bronchus mucus plug. 5. Severe anemia. 6. Status post transfusion of 2 units of packed cells. 7. Severe protein calorie malnutrition. 8. PEG tube status requiring tube feeding. 9. Chronic pain. 10. Pain management. 11. History of cancer of the tongue. 12. Weight loss. 13. Urinary tract infection. SUBJECTIVE: The patient has done well and feels much better after getting her blood transfusion. She feels has a lot more energy. I did call today, thinking possibly of transferring her for possible bronchoscopy with some mucus blood extraction. The transfer team spoke to Dr. Blanco and with some information as she was at twice and has had a bronchoscopy and Dr. Blanco is aware of the mucus plug and also feels that possibly she has an extension of her lung cancer. He stated at this time a bronchoscopy would not be necessary and to just continue with treating the pneumonia. The Mucinex and breathing treatments are helping her with expel a large amount of putrid-looking mucous. Also Dr. Blanco stated that some of the sputum from the bronchoscopy was MRSA. Sputum culture here growing out Staph aureus, heavy growth and gram-negative rods. OBJECTIVE: VITAL SIGNS: Blood pressure 132/82, pulse 92, respirations 10, maintaining her sats at 97% on 3 liters, temperature is 97.8. GENERAL: The patient's color is certainly improved. Cheeks are pink. Tongue is moist. Her throat is clear. NECK: Supple. LUNGS: With some coarse breath sounds, but clear. CARDIOVASCULAR: Regular rhythm and rate. ABDOMEN: Mildly protuberant, nontender. PEG tube in place. KUB negative. EXTREMITIES: Without edema. IMAGING: Chest x-ray shows increase in lung consolidation involving the right mid and lower lung when compared to prior chest x-ray. She has a small loculated right pleural effusion. Her sputum culture again is growing out Staph and gram-negative rods. LABORATORY DATA: CBC, her albumin is 2.1, hemoglobin 8.7 and 26.3. Urine culture is showing gram-negative rods. PLAN: Added in vancomycin. We will go by the instructions from . We will inform her and her that transfer is not necessary. We will continue to treat her infections. Again yesterday, I did ask her if something happens would she wanted to be resuscitated and she said yes. STEPHY RYDER DO DR: Marvin JOB#: [id number] / [id number]
[2017-02-18] MEDS: METHADONE 5 MG TABLET. PO SCH ×3 (05:01→21:22)
[2017-02-18] MEDS: LEVOTHYROXINE 50 MCG TABLET PO SCH (05:01)
[2017-02-18] MEDS: IPRATRPIUM/ALBUTEROL 0.5/2.5MG 3 ML NEBU. NEB SCH ×4 (05:33→20:44)
[2017-02-18 06:06] LABS: HEMATOCRIT 29.8 % (36.0-47.0); HEMOGLOBIN 9.2 g/dL (12.0-15.5); RED BLOOD COUNT 3.82 x10^6/uL (3.50-5.40); RED CELL DISTRIBUTION WIDTH 22.4 % (11.5-14.5); WHITE BLOOD COUNT 5.6 x10^3/uL (4.0-11.0)
[2017-02-18 06:15] LABS: ALBUMIN 2.1 g/dL (3.4-5.0); ALBUMIN/GLOBULIN RATIO 0.4 (1.0-1.7); CALCIUM 8.5 mg/dL (8.5-10.1); CREATININE 0.7 mg/dL (0.6-1.0); GFR 81.1; MAGNESIUM 1.7 mg/dL (1.8-2.4); POTASSIUM 4.3 mmol/L (3.5-5.1); TOTAL BILIRUBIN 0.2 mg/dL (0.2-1.0); TOTAL PROTEIN 7.8 g/dL (6.4-8.2)
[2017-02-18] MEDS ORDERED: MAGNESIUM SULFATE 2GM 50 ML IV ONE (08:20)
[2017-02-18] MEDS: guaiFENesin DM 200MG/20MG 10 ML SYRUP PO SCH ×4 (08:33→23:25)
[2017-02-18] MEDS: FOLIC ACID 1 MG TABLET PO SCH (08:33)
[2017-02-18] MEDS: PANTOPRAZOLE IV PUSH 40 MG VIAL. IVP SCH (08:33)
[2017-02-18] MEDS: SIMETHICONE 80 MG TAB.CHEW PO SCH ×2 (08:33→21:22)
[2017-02-18] MEDS: ASPIRIN 81 MG TAB.CHEW PO SCH (08:33)
[2017-02-18] MEDS: SENNOSIDES 8.6 MG TABLET PO SCH ×2 (08:34→21:22)
[2017-02-18] MEDS: METOCLOPRAMIDE 5 MG TABLET PO SCH ×3 (08:34→21:22)
[2017-02-18] MEDS: LACTOBACILLUS ACIDOPH & BULGAR 1 TABLET. PO SCH (08:34)
[2017-02-18] MEDS ORDERED: SALIVA STIMULANT AGENT MOUTHWASH 237ML BOTTLE. PO PRN (10:00)
[2017-02-18] MEDS ORDERED: ACETAMINOPHEN 650 MG/20.3 ML SOLUTION. PO PRN (10:00)
[2017-02-18] MEDS ORDERED: ACETAMINOPHEN 650 MG/20.3 ML SOLUTION. PO ONE (10:10)
[2017-02-18] MEDS ORDERED: VANCOMYCIN 750 MG in IV NORMAL SALINE 250ML 250 ML IV SCH (12:00)
--- NOTE | 2017-02-18 12:36 | NUR ---
Bedside Swallow Evaluation completed. Pt. presents w/ significant hx of dysphagia, pneumonia and lingual/lung CA. Single ice chip, 1/2 tsp honey thick water x1 and 1/2 tsp applesauce x1 trials presented. Pt demonstrated poor oral transit and control, severely decreased hylaryngeal elevation and overt s/s aspiration w/ minimal PO trials. Impressions: Severe oropharyngeal dysphagia w/ high risk of aspiration for all PO. No safe consistency is identified. Pt. has functioning PEG, therefore pt has a safe means of nutrition and hydration. Recommendations: 1. NPO 2. Oral swabs for moisture d/t dry mouth from lingual CA/CA tx. Education provided to squeeze water from swab prior to swabbing mouth. 3. No additional ST services indicated at this time.
--- NOTE | 2017-02-18 13:39 | RAD ---
AP chest, 02/18/2017: History: Follow-up pneumonia Comparison is made to a study from 02/17/2017. There is improved aeration of the right lung inferiorly. There is moderate persistent right perihilar atelectasis/infiltrate. There is moderate ongoing pleural thickening on the right compatible with pleural fluid. The mediastinum remains prominent in the right hilar region. The heart appears to be within normal limits in size. There is calcific plaquing of the thoracic aorta. Minimal ongoing interstitial prominence in the left lung may be due to fibrosis. No definite left lung consolidation or significant pleural fluid is seen. There is no evidence of pneumothorax. IMPRESSION: 1. Persistent circumferential pleural thickening on the right compatible with partially loculated pleural fluid. 2. Moderate ongoing right lung infiltrates with improved aeration of the right base since yesterday's study. 3. No new abnormality is detected.
[2017-02-18] MEDS: OXYBUTYNIN CHLORIDE 5 MG TABLET PO SCH (21:22)
[2017-02-18] MEDS: NORTRIPTYLINE 25 MG CAPSULE PO SCH (21:23)
[2017-02-19] VITALS (16 sets, daily range): BP systolic 100–159; BP diastolic 70–103
[2017-02-19] MEDS: HYOSCYAMINE 0.125 MG TAB.RAPDIS PO SCH ×4 (03:18→17:36)
--- NOTE | 2017-02-19 03:27 | PN ---
DATE: 02/18/2017 CURRENT PROBLEM: 1. Postobstructive pneumonia. 2. Acute respiratory failure. 3. Lung cancer. 4. Chronic right bronchus mucus plugging. 5. Severe anemia. 6. Status post transfusion of 2 units of packed cells. 7. Severe protein calorie malnutrition. 8. PEG tube status with tube feedings. 9. Chronic pain. 10. Pain management. 11. History of cancer of the tongue. 12. Weight loss. 13. Urinary tract infection. 14. Failed sleep study with severe oropharyngeal dysphagia. SUBJECTIVE: Chart reviewed. As stated in progress note from yesterday, she is not a candidate to have a bronchoscopy for this mucus plugging. After the progress note from yesterday, I spent about 45 minutes talking to her and discussed at length her prognosis, her condition, and how best to proceed. He does not want me to discuss with her prognosis, which I believe is fairly poor at this point. We are going to meet with Yoly Landa today; however, she will not be here this afternoon, but overall we discussed her prognosis, her overall condition, and how to proceed going forward. He was not knowledgeable concerning DPOA, DNR status or what hospice services can offer. I discussed those with him. Overall, she is much better today. Really got a whole lot better, have improved significantly after getting blood transfusions. Her blood count has stabilized and is staying up. Did discuss her condition at length as well. I also compared chest x-ray from 2013 to now and it has significantly worsened and does appear that she does have a tumor that is somewhat impeding on the right main stem bronchus. That was not there in 2014. She has been well hydrated and is receiving antibiotics and she feels a lot better now, that she is not on so many sedating medications and she does not have any increase in her pain since not getting Ativan and large doses of Dilaudid. She continues on her methadone. OBJECTIVE: VITAL SIGNS: Blood pressure 148/87, pulse 93, temperature 97.3, respirations 14, O2 sat is 97% on 3 liters. GENERAL: I and O, she did have 7000 in and 1725 out, balance of 5274 liters. Weight is same however, which obviously is not accurate. Color is improved. HEENT: Her tongue is moist. There is evidence of the tongue surgery. NECK: Supple. LUNGS: They were essentially clear. CARDIOVASCULAR: Regular rhythm and rate. ABDOMEN: Soft, protuberant, nontender. Bowel sounds positive. EXTREMITIES: Without edema. LABORATORY DATA: This morning, hemoglobin 9.2, hematocrit 29.8, MCV 78. Chemistry: Sodium 133, chloride 96, albumin 2.1. PLAN: Shared information with the . Also has had urine culture, positive for gram-negative rods and sputum culture grew out Staph aureus and gram-negative rods. Continue antibiotics, PT and OT today and discussed her overall care again with her later on today. STEPHY YRDER DO DR: MERY/leon JOB#: [id number] / [id number]
[2017-02-19] MEDS: LEVOTHYROXINE 50 MCG TABLET PO SCH (05:31)
[2017-02-19] MEDS: guaiFENesin DM 200MG/20MG 10 ML SYRUP PO SCH ×3 (05:32→17:36)
[2017-02-19] MEDS: METHADONE 5 MG TABLET. PO SCH ×2 (05:32→13:08)
[2017-02-19] MEDS: IPRATRPIUM/ALBUTEROL 0.5/2.5MG 3 ML NEBU. NEB SCH ×3 (05:49→15:36)
[2017-02-19] MEDS: SENNOSIDES 8.6 MG TABLET PO SCH (09:34)
[2017-02-19] MEDS: SIMETHICONE 80 MG TAB.CHEW PO SCH (09:35)
[2017-02-19] MEDS: METOCLOPRAMIDE 5 MG TABLET PO SCH ×2 (09:35→13:08)
[2017-02-19] MEDS: ASPIRIN 81 MG TAB.CHEW PO SCH (09:35)
[2017-02-19] MEDS: FOLIC ACID 1 MG TABLET PO SCH (09:35)
[2017-02-19] MEDS: PANTOPRAZOLE IV PUSH 40 MG VIAL. IVP SCH (09:35)
[2017-02-19] MEDS: LACTOBACILLUS ACIDOPH & BULGAR 1 TABLET. PO SCH (09:35)
[2017-02-19 11:51] LABS: BASO % 0 % (0-3); EOS # 0.3 x10^3/uL (0.0-0.7); EOS % 4 % (0-3); HEMATOCRIT 29.4 % (36.0-47.0); HEMOGLOBIN 9.7 g/dL (12.0-15.5); LYMPH # 0.7 x10^3/uL (1.0-4.8); LYMPH % 8 % (24-48); MEAN CORPUSCULAR HEMOGLOBIN 25 pg (25-35); MEAN CORPUSCULAR HGB CONC 33 g/dL (31-37); MEAN CORPUSCULAR VOLUME 76 fL (79-100); MONO # 1.2 x10^3/uL (0.0-1.1); MONO % 13 % (0-9); NEUT # 7.1 x10^3uL (1.8-7.7); NEUT % 76 % (31-73); PLATELET COUNT 522 x10^3/uL (140-400); RED BLOOD COUNT 3.85 x10^6/uL (3.50-5.40); RED CELL DISTRIBUTION WIDTH 24.4 % (11.5-14.5); WHITE BLOOD COUNT 9.4 x10^3/uL (4.0-11.0)
[2017-02-19 11:59] LABS: ALBUMIN 2.2 g/dL (3.4-5.0); ALBUMIN/GLOBULIN RATIO 0.4 (1.0-1.7); CALCIUM 8.8 mg/dL (8.5-10.1); CREATININE 0.7 mg/dL (0.6-1.0); GFR 81.1; POTASSIUM 3.5 mmol/L (3.5-5.1); TOTAL BILIRUBIN 0.3 mg/dL (0.2-1.0); TOTAL PROTEIN 8.1 g/dL (6.4-8.2)
[2017-02-19] MEDS ORDERED: VANCOMYCIN 750 MG in IV NORMAL SALINE 250ML 250 ML IV SCH ×4 (12:00)
[2017-02-19 12:11] LABS: VANC TR 9.6 mcg/mL (10.0-20.0)
[2017-02-19] MEDS: VANCOMYCIN PER PHARMACY MC PRN (12:33)
--- NOTE | 2017-02-19 12:33 | NUR ---
Pharmacy Vancomycin Dosing Note S:Consulted to monitor and dose vancomycin started 02/17/17. O:MARCY HALL is a 76 year old F with Pneumonia . Height: 5 feet, 3 inches Weight: 45.435213 kg [place] Body Weight: 52.40 Adjusted Body Weight: 50.16 Dosing Weight: Actual Other Antibiotics: CEFTRIAXONE 1 GRAM Q24HRS LABS: Last BUN: 17 Last Creatinine: 0.7 Creatinine Clearance: 34.8 Last WBC: 5.6 Last Platelets: 457 Tmax (past 24 hours): Microbiology: I/O: Drug Levels: Last Trough level: 9.6 on 02/19/17 at 1130 Last dose given 02/19/17 at 1200 Vancomycin Dosinmg q24hrs Loading Dose: 1250 mg x1 Dosing Weight: Actual Target Trough: 15-20 A: Based on: P: 1. Change Vancomycin to 750 mg IV q12h 2. Follow up Trough level on 02/20/17 at 1130 3. Pharmacy will continue to monitor, follow and adjust therapy as needed. ISHMAEL AMYS [facility], 02/19/17 [id number]
[2017-02-19 12:44] LABS: % BANDS 6 % (0-9); % EOS 6 % (0-5); % LYMPHS 14 % (24-48); % MONOS 12 % (0-10); % SEGS 61 % (35-66); NUCLEATED RBC 1
[2017-02-19 12:45] LABS: PLATELET CLUMP PRESENT; PLT ESTIMATE INCREASED (ADEQUATE)
[2017-02-19 12:46] LABS: ANISOCYTOSIS MOD; HYPOCHROMIA MOD; POIKILOCYTOSIS MOD; POLYCHROMASIA SLIGHT
[2017-02-19] MEDS ORDERED: IPRA3AMP NEB (13:20)
[2017-02-19] MEDS ORDERED: VANC1VIA3 MC (13:20)
[2017-02-19] MEDS ORDERED: GUAI5SYR PO (13:20)
[2017-02-19] MEDS ORDERED: HYDR2TAB31 PO (13:20)
[2017-02-19] MEDS ORDERED: CEFT1FRO2 IV (13:23)
--- NOTE | 2017-02-19 19:30 | NUR ---
[facility] and [facility] medications reviewed with Dr. Kaur and a copy given. All questions have been answered and understanding verbalized. Discharge instructions were given: Discharge to Alejandrina RN on Swing bed unit. Picc line left in place. [facility]
--- NOTE | 2017-02-19 19:42 | NUR ---
Order Verified Yes Consent signed Yes Previous PICC placement Yes Past Medical/Surgical history and current diagnosis reviewed Yes Patient Medical /Surgical History Related to PICC line placement None Special considerations for PICC line placement None PICC placement indication terminal worker antibiotic usage, Poor peripheral intravenous access Name of PICC Nurse Mary Rudolph RN
--- NOTE | 2017-02-19 19:44 | NUR ---
Procedure: Following complete explanation of the PICC procedure including the indications, risks, and potential complications, informed consent was obtained. The possibility for infection was discussed along with signs, symptoms, and prevention. All the patient's questions were answered. IV Device Protocol was used. Written and verbal patient education was provided. Hand hygiene performed. Standardized central line checklist was utilized. The patient was placed in the supine position, the left arm was prepped with chlorhexidine and patient draped with maximum sterile barrier. 1 mL 1% lidocaine was infiltrated into the skin to provide local anesthesia. A thorough assessment of the left upper extremity completed. Using real-time ultrasound guidance and standardized micro puncture set, the basilic vein was punctured and a peel away sheath was placed using the modified Seldinger technique. A tip location device was used to ensure adequate catheter placement. The catheter was secured using a securement device and an antimicrobial patch was applied directly on the insertion site followed by a transparent dressing. All ports withdraw blood and flush without resistance. Patient tolerated the procedure without apparent complication(s). A double Lumen Power PICC placement successful and uncomplicated. Placement verified by EKG tip confirmation system. Tip located in the lower SVC per 3CG Complications: None
--- NOTE | 2017-02-20 01:08 | DS ---
DATE OF DISCHARGE: 02/19/2017 DISCHARGE DISPOSITION: Swing bed for further IV antibiotics. DISCHARGE DIAGNOSES: 1. Post-obstructive gram-negative and methicillin-resistant Staphylococcus aureus pneumonia. 2. Acute respiratory failure, resolved. 3. Lung cancer. 4. Chronic right bronchial mucus plugging. 5. Severe anemia. 6. Status post transfusion of 2 units packed cells. 7. Severe protein-calorie malnutrition. 8. Percutaneous endoscopic gastrostomy tube status with tube feeding. 9. Chronic pain. 10. Pain management. 11. History of cancer of the tongue. 12. Weight loss. 13. Urinary tract infection with E. coli. 14. Failed swallowing study with severe oropharyngeal dysphagia. HOSPITAL COURSE: A 76-year-old female who was admitted in acute respiratory failure and subsequent workup revealed gram-negative as well as MRSA pneumonia, post-obstructive pneumonia, mucus plugging, severe protein-calorie malnutrition and oversedation from narcotics. She was aggressively treated with IV fluids and IV antibiotics. I attempted to transfer to . However, critical care physician did know her and it was not in favor of doing a bronchoscopy with trying to manipulate the mucus plug as it is old and chronic. Her narcotics were adjusted and decreased significantly and she became much more alert and able to do more things for herself and her mentation improved significantly. She was seen in consultation by the dietitian who adjusted her tube feedings. We had hoped that she could take p.o.; however, she has severe oropharyngeal dysphagia by swallowing evaluation. Long discussion with her and her daughter on her prognosis and they have to move forward. For now, we will move her to swing bed status, continue with IV antibiotics, PT and OT, and family has requested she be transferred to a different detention after that. She will have a PICC line placed for IV access. Overall doing much better than I anticipated. OBJECTIVE: VITAL SIGNS: Blood pressure 142/93, pulse 110, respirations 12, pulse ox 96% on 3 liters, much more alert, color is pink. Intake yesterday 2195, output 4075. HEENT: Her tongue is moist. NECK: Supple. LUNGS: Clear with a few crackles. CARDIOVASCULAR: Regular rhythm and rate. ABDOMEN: Soft, mildly protuberant, nontender. KUB was negative. EXTREMITIES: Without edema. PLAN: To move to swing bed status in the hopes of improving her overall function. I did tell her that it is possible we will get her to a certain point and she would not improve any further. STEPHY RYDER DO DR: Marvin JOB#: [id number] / [id number]
== END 2017-02-19 19:34 | disposition swing bed (61) | DRG 177 ==
LOC: ER 02:45 → ICU 03:43
PROVIDERS: ADMIT Family Medicine; ATTEND Family Medicine
PROC: 30233N1 Transfusion of Nonautologous Red Blood Cells into Peripheral Vein, Percutaneous Approach (ICD-10-PCS; principal; 2017-02-16)
DX: J15.212 Pneumonia due to Methicillin resistant Staphylococcus aureus (principal); J96.00 Acute respiratory failure, unspecified whether with hypoxia or hypercapnia; E43 Unspecified severe protein-calorie malnutrition; T17.590A Other foreign object in bronchus causing asphyxiation, initial encounter; N39.0 Urinary tract infection, site not specified; C34.90 Malignant neoplasm of unspecified part of unspecified bronchus or lung; B96.20 Unspecified Escherichia coli [E. coli] as the cause of diseases classified elsewhere; I10 Essential (primary) hypertension; Z68.1 Body mass index [BMI] 19.9 or less, adult; D64.9 Anemia, unspecified; R13.12 Dysphagia, oropharyngeal phase; G89.29 Other chronic pain; E03.9 Hypothyroidism, unspecified; F32.9 Major depressive disorder, single episode, unspecified; T45.1X5A Adverse effect of antineoplastic and immunosuppressive drugs, initial encounter; Z85.810 Personal history of malignant neoplasm of tongue; Z93.1 Gastrostomy status; Z85.118 Personal history of other malignant neoplasm of bronchus and lung; Z85.51 Personal history of malignant neoplasm of bladder; Z86.73 Personal history of transient ischemic attack (TIA), and cerebral infarction without residual deficits; Z92.3 Personal history of irradiation; Z87.891 Personal history of nicotine dependence
CPT/HCPCS: 36415; 71010; 71260; 74000; 80053; 80202; 81001; 82553; 83605; 83690; 83735; 83880; 84443; 84484; 85007; 85014; 85018; 85025; 85027; 86850; 86870; 86900; 86901; 86922; 87040; 87070; 87086; 87186; 87205; 87641; 93005; 94640; 96365; 96366; 96367; 96375; 99406; C9113; G0238; J0456; J0696; J1170; J2930; J3370; J3475; J7050; J7620; J8597; P9016; 92610; 99291-25; J7030

== ENCOUNTER 2017-02-19 19:45 | Inpatient (IN) | payer MEDICARE, OTHER ==
[~2017-02-19] VITALS: Ht 160 cm; Wt 44.6 kg
[~2017-02-19 19:45] MED LIST changes: +BISA10SU2 RC; +CEFT1FRO2 IV; +GUAI5SYR PO; +HYDR2TAB31 PO; +HYOS0.1222 PO; +IPRA3AMP NEB; +LACT1CAP6 PO; +LEVO50TA5 PO; +LIDO40SO MM; +LORA0.5T96 PO; +LORA10TA3 PO; +METH10TA2 PO; +METO10TA81 PO; +NORT25CA PO; +OXYB5TAB7 PO; +PROM25TA10 PO; +VANC1VIA3 MC
[2017-02-19] MEDS ORDERED: BISACODYL 10 MG SUPP.RECT RC PRN (20:00)
[2017-02-19] MEDS ORDERED: VANCOMYCIN 1 GM VIAL. IV PRN (20:00)
[2017-02-19] MEDS ORDERED: HYDROmorphone 2 MG TABLET PO PRN (20:00)
[2017-02-19 20:25] VITALS: BP 152/89
[2017-02-19] MEDS: VANCOMYCIN PER PHARMACY MC PRN (20:27)
[2017-02-19] MEDS ORDERED: OXYBUTYNIN CHLORIDE 5 MG TABLET PO SCH (21:00)
[2017-02-19] MEDS ORDERED: SIMETHICONE 80 MG TAB.CHEW PO SCH (21:00)
[2017-02-19] MEDS ORDERED: MIRTAZAPINE 30 MG TABLET PO SCH (21:00)
[2017-02-19] MEDS ORDERED: NORTRIPTYLINE 25 MG CAPSULE PO SCH (21:00)
[2017-02-19] MEDS: IPRATRPIUM/ALBUTEROL 0.5/2.5MG 3 ML NEBU. NEB SCH (21:00)
[2017-02-19] MEDS ORDERED: METOCLOPRAMIDE 10 MG TABLET PO SCH (21:00)
[2017-02-19] MEDS: HYOSCYAMINE 0.125 MG TAB.RAPDIS PO SCH ×2 (21:14→23:52)
[2017-02-19 21:50] VITALS: BP 154/98
[2017-02-19] MEDS ORDERED: METHADONE 5 MG TABLET. PO SCH (22:00)
[2017-02-19] MEDS: VANCOMYCIN 750 MG in IV NORMAL SALINE 250ML 250 ML IV SCH (23:53)
[2017-02-20] MEDS ORDERED: guaiFENesin DM 200MG/20MG 10 ML SYRUP PO SCH
[2017-02-20] MEDS: HYOSCYAMINE 0.125 MG TAB.RAPDIS PO SCH ×5 (04:00→21:06)
[2017-02-20] MEDS: METHADONE 5 MG TABLET. PEG SCH ×3 (05:25→21:09)
[2017-02-20] MEDS: LEVOTHYROXINE 50 MCG TABLET PEG SCH (05:25)
[2017-02-20] MEDS: guaiFENesin DM 200MG/20MG 10 ML SYRUP PEG SCH ×3 (05:25→17:55)
[2017-02-20] MEDS: IPRATRPIUM/ALBUTEROL 0.5/2.5MG 3 ML NEBU. NEB SCH ×3 (05:58→20:39)
[2017-02-20] MEDS ORDERED: LEVOTHYROXINE 50 MCG TABLET PO SCH (06:00)
[2017-02-20 06:12] VITALS: BP 159/82
[2017-02-20] MEDS: HYDROmorphone 2 MG TABLET PEG PRN (07:57)
[2017-02-20] MEDS: FOLIC ACID 1 MG TABLET PEG SCH (07:58)
[2017-02-20] MEDS: METOCLOPRAMIDE 5 MG TABLET PEG SCH ×3 (07:59→21:09)
[2017-02-20] MEDS: LACTOBACILLUS ACIDOPH & BULGAR 1 TABLET. PO SCH (07:59)
[2017-02-20] MEDS: SIMETHICONE 80 MG TAB.CHEW PEG SCH ×2 (07:59→21:09)
[2017-02-20] MEDS: ASPIRIN 81 MG TAB.CHEW PEG SCH (07:59)
[2017-02-20] MEDS ORDERED: CEFTRIAXONE NA IV SCH (08:00)
[2017-02-20] MEDS ORDERED: DEXTROSE ISO IV SCH (08:00)
[2017-02-20] MEDS ORDERED: ASPIRIN ENTERIC COATED 81 MG TABLET.DR. PO SCH (09:00)
[2017-02-20] MEDS ORDERED: FOLIC ACID 1 MG TABLET PO SCH (09:00)
[2017-02-20] MEDS: VANCOMYCIN 750 MG in IV NORMAL SALINE 250ML 250 ML IV SCH (11:44)
[2017-02-20 12:23] LABS: VANC TR 18.5 mcg/mL (10.0-20.0)
--- NOTE | 2017-02-20 12:28 | PDOC1 ---
HISTORY & PHYSICAL DATE OF ADMISSION: 02/19/17 HPI: HPI: 76 year [facility] female [facility] IV and PT OT. Admitted after hospitalization for the above problems. PROBLEMS: 1. Post-obstructive gram-negative and methicillin-resistant Staphylococcus aureus pneumonia. 2. Acute respiratory failure, resolved. 3. Lung cancer. 4. Chronic right bronchial mucus plugging. 5. Severe anemia. 6. Status post transfusion of 2 units packed cells. 7. Severe protein-calorie malnutrition. 8. Percutaneous endoscopic gastrostomy tube status with tube feeding. 9. Chronic pain. 10. Pain management. 11. History of cancer of the tongue. 12. Weight loss. 13. Urinary tract infection with E. coli. 14. Failed swallowing study with severe oropharyngeal dysphagia. PAST MEDICAL HISTORY: PMH: No change from H and P done 02/16 PSH: No change from H and P done 02/16 SH: NO change ALLERGIES: Allergies Coded Allergies Type Severity Reaction Last Updated Verified Procaine HCl Allergy Severe 08/28/13 Yes cephalexin Allergy Severe 02/16/17 Yes morphine Allergy Severe 02/16/17 Yes sulfamethoxazole Allergy Severe 02/16/17 Yes tramadol Allergy Severe 02/16/17 Yes trimethoprim Allergy Severe 02/16/17 Yes ciprofloxacin Allergy Intermediate 08/28/13 Yes ciprofloxacin HCl Allergy Intermediate 08/28/13 Yes I S O L A T I O N *CONTACT* Allergy Unknown 06/08/14 Yes Uncoded Allergies Type Severity Reaction Last Updated Verified oral medications Adverse Reaction Severe Nausea and Vomiting 08/27/13 MEDS: MEDICATIONS: Current Medications Medications (Trade) Dose Ordered Sig/Jarred Start Time Stop Time Status Last Admin Dose Admin Albuterol/ Ipratropium (Duoneb) 3 ml TID 02/19/17 21:00 02/20/17 09:56 3 ML Aspirin (Aspirin Enteric Coated) 81 mg DAILY 02/20/17 09:00 02/20/17 09:00 DC Aspirin (Children'S Aspirin) 81 mg [id number] 02/20/17 08:00 02/20/17 07:59 81 MG Bisacodyl (Dulcolax Supp) 10 mg PRN DAILY PRN 02/19/17 20:00 Ceftriaxone Sodium 1 gm/ Sodium Chloride 50 ml @ 100 mls/hr DAILY08 02/20/17 08:00 02/20/17 08:01 100 MLS/HR Folic Acid (Folic Acid) 1 mg DAILY 02/20/17 09:00 02/20/17 07:58 1 MG Guaifenesin (Robitussin Dm) 10 ml Q6HRS 02/20/17 06:00 02/20/17 11:43 10 ML Hydromorphone HCl (Dilaudid) 2 mg PRN Q6HRS PRN 02/20/17 03:45 02/20/17 07:57 2 MG Hyoscyamine (Anaspaz) 0.125 mg Q4HRS 02/19/17 20:00 02/20/17 11:43 0.125 MG Lactobacillus Acidophilus (Bacid, Barbara-Bid) 2 tab DAILY 02/20/17 09:00 02/20/17 07:59 2 TAB Levothyroxine Sodium (Synthroid) 50 mcg DAILY06 02/20/17 06:00 02/20/17 05:25 50 MCG Methadone HCl (Dolophine) 10 mg Q8HRS 02/20/17 06:00 02/20/17 05:25 10 MG Metoclopramide HCl (Reglan) 5 mg TID 02/20/17 09:00 02/20/17 07:59 5 MG Mirtazapine (Remeron) 30 mg QHS 02/20/17 21:00 Non-Formulary Medication 1 gm DAILY08 02/20/17 08:00 UNV Nortriptyline HCl (Pamelor) 25 mg QHS 02/20/17 21:00 Oxybutynin Chloride (Ditropan) 5 mg HS 02/20/17 21:00 Simethicone (Gas-X) 80 mg BID 02/20/17 09:00 02/20/17 07:59 80 MG Vancomycin HCl 1 each 1X ONCE 02/20/17 11:30 02/20/17 11:31 DC 02/20/17 11:30 1 EACH Vancomycin HCl (Vanco Per Pharmacy) 1 each PRN DAILY PRN 02/19/17 20:30 02/19/17 20:27 1 EACH Vancomycin HCl 750 mg/Sodium Chloride 250 ml @ 250 mls/hr Q12H 02/20/17 00:00 02/20/17 11:44 250 MLS/HR VITALS: Vital Signs Date Time Temp Pulse Resp B/P (MAP) Pulse Ox O2 Delivery O2 Flow Rate FiO2 02/20/17 09:56 97 Nasal Cannula 3.0 02/20/17 09:00 20 02/20/17 06:12 97.5 85 159/82 (107) LABS: None to check ROS: Feels stronger and more alert, no new complaints. PHYSICAL EXAM: Alert and oriented, color pink, eyes clear, tongue moist, defects from surgery noted. Neck supple, Lungs with crackles on the right, CVRRR, Abdomen soft , mildly protuberant, peg tube in place. Extremities without edema. Poor muscle mass and atrophic muscles. ASSESSMENT/PLAN ASSESSMENT: See problem list PLAN: [facility], IV antibiotics, PT, OT. STEPHY RYDER DO Feb 20, 2017 12:28
[2017-02-20] MEDS: VANCOMYCIN PER PHARMACY MC PRN (13:49)
[2017-02-20] MEDS: MIRTAZAPINE 30 MG TABLET PEG SCH (21:07)
[2017-02-20] MEDS: OXYBUTYNIN CHLORIDE 5 MG TABLET PEG SCH (21:08)
[2017-02-20] MEDS: NORTRIPTYLINE 25 MG CAPSULE PEG SCH (21:12)
[2017-02-21] MEDS: guaiFENesin DM 200MG/20MG 10 ML SYRUP PEG SCH ×4 (00:26→16:50)
[2017-02-21] MEDS: VANCOMYCIN 750 MG in IV NORMAL SALINE 250ML 250 ML IV SCH ×2 (00:26→12:10)
[2017-02-21] MEDS: HYOSCYAMINE 0.125 MG TAB.RAPDIS PO SCH ×6 (00:26→20:08)
[2017-02-21] MEDS: IPRATRPIUM/ALBUTEROL 0.5/2.5MG 3 ML NEBU. NEB SCH ×3 (05:50→21:25)
[2017-02-21] MEDS: METHADONE 5 MG TABLET. PEG SCH ×3 (06:07→21:27)
[2017-02-21] MEDS: LEVOTHYROXINE 50 MCG TABLET PEG SCH (06:07)
[2017-02-21 06:13] LABS: BASO % 1 % (0-3); EOS # 0.4 x10^3/uL (0.0-0.7); EOS % 8 % (0-3); HEMATOCRIT 25.9 % (36.0-47.0); HEMOGLOBIN 8.1 g/dL (12.0-15.5); LYMPH # 0.4 x10^3/uL (1.0-4.8); LYMPH % 7 % (24-48); MEAN CORPUSCULAR HEMOGLOBIN 24 pg (25-35); MEAN CORPUSCULAR HGB CONC 32 g/dL (31-37); MEAN CORPUSCULAR VOLUME 78 fL (79-100); MONO # 0.7 x10^3/uL (0.0-1.1); MONO % 12 % (0-9); NEUT % 73 % (31-73); PLATELET COUNT 361 x10^3/uL (140-400); RED BLOOD COUNT 3.34 x10^6/uL (3.50-5.40); RED CELL DISTRIBUTION WIDTH 24.4 % (11.5-14.5); WHITE BLOOD COUNT 5.5 x10^3/uL (4.0-11.0)
[2017-02-21 06:28] LABS: ALBUMIN 1.9 g/dL (3.4-5.0); ALBUMIN/GLOBULIN RATIO 0.4 (1.0-1.7); CALCIUM 8.2 mg/dL (8.5-10.1); CREATININE 0.6 mg/dL (0.6-1.0); GFR 96.9; MAGNESIUM 1.8 mg/dL (1.8-2.4); POTASSIUM 3.8 mmol/L (3.5-5.1); TOTAL BILIRUBIN 0.2 mg/dL (0.2-1.0); TOTAL PROTEIN 6.9 g/dL (6.4-8.2)
[2017-02-21 06:48] LABS: FECAL OB PT NEGATIVE (NEG)
[2017-02-21] MEDS: ASPIRIN 81 MG TAB.CHEW PEG SCH (08:22)
[2017-02-21] MEDS: METOCLOPRAMIDE 5 MG TABLET PEG SCH ×3 (08:22→21:28)
[2017-02-21] MEDS: FOLIC ACID 1 MG TABLET PEG SCH (08:22)
[2017-02-21] MEDS: SIMETHICONE 80 MG TAB.CHEW PEG SCH ×2 (08:23→21:27)
[2017-02-21] MEDS: LACTOBACILLUS ACIDOPH & BULGAR 1 TABLET. PO SCH (08:23)
[2017-02-21] MEDS ORDERED: IV NORMAL SALINE 250ML 250 ML ONE (08:50)
[2017-02-21 09:25] VITALS: BP 153/79
--- NOTE | 2017-02-21 10:42 | RAD ---
AP chest radiograph 02/21/2017 Clinical indication: Shortness of breath, pneumonia. Comparison: Chest radiograph February 18, 2017, CT chest February 16, 2017. Findings: Right heart border is obscured. There is no significant change in small right pleural effusion. There are unchanged interstitial opacities most prominent in the right upper lobe and additional patchy consolidation in the right lung base. Scattered areas of scarring in the left lung without pleural effusion or pneumothorax. There is been interval placement of a left-sided PICC with distal tip overlying the superior caval atrial junction. Impression: 1. Placement of left-sided PICC with distal tip overlying the superior cavoatrial junction. 2. Stable right pleural effusion, patchy airspace opacities throughout the aerated right lung and patchy consolidation in the right lung base. Findings may represent multifocal pneumonia, however underlying mass cannot be definitively excluded.
[2017-02-21] MEDS: HYDROmorphone 2 MG TABLET PEG PRN (16:50)
[2017-02-21 18:10] VITALS: BP 156/84
[2017-02-21] MEDS: MIRTAZAPINE 30 MG TABLET PEG SCH (21:27)
[2017-02-21] MEDS: NORTRIPTYLINE 25 MG CAPSULE PEG SCH (21:28)
[2017-02-21] MEDS: OXYBUTYNIN CHLORIDE 5 MG TABLET PEG SCH (21:28)
[2017-02-22] MEDS: guaiFENesin DM 200MG/20MG 10 ML SYRUP PEG SCH ×4 (00:02→17:46)
[2017-02-22] MEDS: HYOSCYAMINE 0.125 MG TAB.RAPDIS PO SCH ×6 (00:02→20:38)
[2017-02-22] MEDS: VANCOMYCIN 750 MG in IV NORMAL SALINE 250ML 250 ML IV SCH ×3 (00:03→13:07)
[2017-02-22] MEDS: LEVOTHYROXINE 50 MCG TABLET PEG SCH (05:32)
[2017-02-22] MEDS: METHADONE 5 MG TABLET. PEG SCH ×3 (05:33→20:39)
[2017-02-22] MEDS: IPRATRPIUM/ALBUTEROL 0.5/2.5MG 3 ML NEBU. NEB SCH ×3 (05:51→20:49)
[2017-02-22 06:10] VITALS: BP 172/82
[2017-02-22] MEDS: METOCLOPRAMIDE 5 MG TABLET PEG SCH ×3 (08:05→20:38)
[2017-02-22] MEDS: ASPIRIN 81 MG TAB.CHEW PEG SCH (08:05)
[2017-02-22] MEDS: FOLIC ACID 1 MG TABLET PEG SCH (08:05)
[2017-02-22] MEDS: LACTOBACILLUS ACIDOPH & BULGAR 1 TABLET. PO SCH (08:05)
[2017-02-22] MEDS: SIMETHICONE 80 MG TAB.CHEW PEG SCH ×2 (08:05→20:39)
[2017-02-22 12:40] LABS: VANC TR 19.7 mcg/mL (10.0-20.0)
[2017-02-22] MEDS: VANCOMYCIN PER PHARMACY MC PRN (13:15)
[2017-02-22 18:31] VITALS: BP 145/80
[2017-02-22] MEDS: MIRTAZAPINE 30 MG TABLET PEG SCH (20:39)
[2017-02-22] MEDS: OXYBUTYNIN CHLORIDE 5 MG TABLET PEG SCH (20:39)
[2017-02-22] MEDS: NORTRIPTYLINE 25 MG CAPSULE PEG SCH (20:54)
[2017-02-23] MEDS: VANCOMYCIN 750 MG in IV NORMAL SALINE 250ML 250 ML IV SCH ×2 (00:09→12:09)
[2017-02-23] MEDS: HYOSCYAMINE 0.125 MG TAB.RAPDIS PO SCH ×6 (00:09→21:35)
[2017-02-23] MEDS: guaiFENesin DM 200MG/20MG 10 ML SYRUP PEG SCH ×3 (00:09→17:02)
[2017-02-23 04:26] VITALS: BP 168/85
[2017-02-23] MEDS: IPRATRPIUM/ALBUTEROL 0.5/2.5MG 3 ML NEBU. NEB SCH ×3 (04:38→21:37)
[2017-02-23] MEDS: LEVOTHYROXINE 50 MCG TABLET PEG SCH (06:00)
[2017-02-23 08:23] LABS: BASO % 0 % (0-3); EOS # 0.3 x10^3/uL (0.0-0.7); EOS % 5 % (0-3); HEMATOCRIT 26.2 % (36.0-47.0); HEMOGLOBIN 8.2 g/dL (12.0-15.5); LYMPH # 0.3 x10^3/uL (1.0-4.8); LYMPH % 5 % (24-48); MEAN CORPUSCULAR HEMOGLOBIN 24 pg (25-35); MEAN CORPUSCULAR HGB CONC 31 g/dL (31-37); MEAN CORPUSCULAR VOLUME 78 fL (79-100); MONO # 0.6 x10^3/uL (0.0-1.1); MONO % 10 % (0-9); NEUT # 4.5 x10^3uL (1.8-7.7); NEUT % 80 % (31-73); PLATELET COUNT 338 x10^3/uL (140-400); RED BLOOD COUNT 3.37 x10^6/uL (3.50-5.40); RED CELL DISTRIBUTION WIDTH 24.3 % (11.5-14.5); WHITE BLOOD COUNT 5.6 x10^3/uL (4.0-11.0)
[2017-02-23] MEDS: METOCLOPRAMIDE 5 MG TABLET PEG SCH ×3 (11:36→21:35)
[2017-02-23] MEDS: FOLIC ACID 1 MG TABLET PEG SCH (11:36)
[2017-02-23] MEDS: ASPIRIN 81 MG TAB.CHEW PEG SCH (11:36)
[2017-02-23] MEDS: LACTOBACILLUS ACIDOPH & BULGAR 1 TABLET. PO SCH (11:37)
[2017-02-23] MEDS: SIMETHICONE 80 MG TAB.CHEW PEG SCH ×2 (12:00→21:35)
[2017-02-23] MEDS: METHADONE 5 MG TABLET. PEG SCH ×2 (14:03→21:35)
[2017-02-23] MEDS: HYDROmorphone 2 MG TABLET PEG PRN (18:29)
[2017-02-23 18:47] VITALS: BP 161/78
[2017-02-23] MEDS: MIRTAZAPINE 30 MG TABLET PEG SCH (21:36)
[2017-02-23] MEDS: NORTRIPTYLINE 25 MG CAPSULE PEG SCH (21:36)
[2017-02-23] MEDS: OXYBUTYNIN CHLORIDE 5 MG TABLET PEG SCH (21:36)
[2017-02-24] MEDS: guaiFENesin DM 200MG/20MG 10 ML SYRUP PEG SCH ×3 (00:26→11:30)
[2017-02-24] MEDS: VANCOMYCIN 750 MG in IV NORMAL SALINE 250ML 250 ML IV SCH ×2 (00:26→12:46)
[2017-02-24] MEDS: HYOSCYAMINE 0.125 MG TAB.RAPDIS PO SCH ×4 (00:26→11:30)
[2017-02-24 04:59] VITALS: BP 152/67
[2017-02-24] MEDS: LEVOTHYROXINE 50 MCG TABLET PEG SCH (05:00)
[2017-02-24] MEDS: METHADONE 5 MG TABLET. PEG SCH ×2 (05:00→12:51)
[2017-02-24] MEDS: IPRATRPIUM/ALBUTEROL 0.5/2.5MG 3 ML NEBU. NEB SCH ×2 (05:50→09:37)
[2017-02-24] MEDS: ASPIRIN 81 MG TAB.CHEW PEG SCH (10:36)
[2017-02-24] MEDS: FOLIC ACID 1 MG TABLET PEG SCH (10:37)
[2017-02-24] MEDS: SIMETHICONE 80 MG TAB.CHEW PEG SCH (10:38)
[2017-02-24] MEDS: METOCLOPRAMIDE 5 MG TABLET PEG SCH ×2 (10:39→12:51)
[2017-02-24] MEDS: LACTOBACILLUS ACIDOPH & BULGAR 1 TABLET. PO SCH (10:39)
--- NOTE | 2017-02-24 21:16 | DS ---
DATE OF DISCHARGE: 02/24/2017 HOSPITAL COURSE: The patient is a 76-year-old female patient who was admitted to [facility]. She has postobstructive gram-negative and methicillin-resistant Staphylococcus aureus pneumonia and acute respiratory failure in the background of lung cancer, chronic right bronchial mucus plugging as well as severe anemia. She was continued on IV ceftriaxone and vancomycin and a decision was made to [facility] to [facility], to continue antibiotic with a stop date of 03/03/2017. PHYSICAL EXAMINATION: GENERAL: When I examined her, she looked well and was clearly in no apparent respiratory distress, pale, but no jaundice, cyanosis, lymphadenopathy or thyromegaly. No jugular venous distention. No limb edema. VITAL SIGNS: Her heart rate was 81, blood pressure was 152/67, temperature was 97.6, respiratory rate was 18 and oxygen saturation was 97% on 3 liters of oxygen. HEENT: Showed normocephalic, atraumatic. NECK: Supple. HEART: Showed normal first and second heart sounds with no gallop, rub or murmur. CHEST: Clear to auscultation. No crepitation or rhonchi. ABDOMEN: Distended, soft, nontender. No guarding or rigidity. No organomegaly. Hernial orifices intact. Bowel sounds normal. NEUROLOGICAL: She is awake, alert, responding appropriately. Her intake and output are incompletely recorded. LABORATORY DATA: Showed that her serum sodium is 137, potassium 3.8, chloride 97, bicarbonate 36, anion gap of 1, BUN 15, creatinine 0.6. Her white cell count was 5600, hemoglobin 8.2, hematocrit 26, MCV 78 and platelet count 338,000. DISCHARGE MEDICATIONS: She was discharged to [facility] to continue on Robitussin DM 10 mL every 6 hours, oxybutynin 5 mg at bedtime, nortriptyline 25 mg at bedtime, mirtazapine 30 mg at bedtime, simethicone 80 mg twice a day, metoclopramide 5 mg 3 times a day, folic acid 1 mg once a day, lactobacillus acidophilus 2 tablets once a day, aspirin 81 mg daily, ceftriaxone 1 g IV daily, methadone 10 mg 3 times a day, levothyroxine 50 mcg daily, hydromorphone 2 mg every 6 hours, vancomycin 750 mg twice a day for a total of 2 weeks, albuterol, DuoNeb by nebulizer 3 times a day, hyoscyamine 0.125 mg every 4 hours, bisacodyl 10 mg daily p.r.n. for constipation. FINAL DISCHARGE DIAGNOSES: 1. Postobstructive gram-negative methicillin-resistant Staphylococcus aureus pneumonia. 2. Acute respiratory failure, resolved. 3. Lung cancer. 4. Chronic right bronchial mucus plugging. 5. Severe anemia. 6. Status post transfusion 2 units of packed RBCs. 7. Severe protein calorie malnutrition. 8. Percutaneous endoscopic gastrostomy tube, status post tube feeding. 9. Chronic pain syndrome, history of cancer of the tongue, weight loss, urinary tract infection with E. coli, failed swallowing study with severe oropharyngeal dysphagia. HELLEN ZIMMER MD DR: ESME/leon JOB#: [id number] / [id number]
== END 2017-02-24 17:45 | DRG 177 ==
LOC: LND 19:45
PROVIDERS: ADMIT Family Medicine; ATTEND Family Medicine
DX: J15.212 Pneumonia due to Methicillin resistant Staphylococcus aureus (principal); J96.00 Acute respiratory failure, unspecified whether with hypoxia or hypercapnia; E43 Unspecified severe protein-calorie malnutrition; T17.590A Other foreign object in bronchus causing asphyxiation, initial encounter; N39.0 Urinary tract infection, site not specified; C34.90 Malignant neoplasm of unspecified part of unspecified bronchus or lung; B96.20 Unspecified Escherichia coli [E. coli] as the cause of diseases classified elsewhere; Z68.1 Body mass index [BMI] 19.9 or less, adult; D64.9 Anemia, unspecified; G89.4 Chronic pain syndrome; R13.12 Dysphagia, oropharyngeal phase; Z93.1 Gastrostomy status; Z85.810 Personal history of malignant neoplasm of tongue; Z88.1 Allergy status to other antibiotic agents; Z88.8 Allergy status to other drugs, medicaments and biological substances; Z88.5 Allergy status to narcotic agent
CPT/HCPCS: 36415; 71010; 80053; 80202; 82274; 83735; 85025; 94640; 94760; J0696; J3370; J7050; J7620; J8597; 97110; 97530; 97535